=== PATIENT | female | born 1970 | race Caucasian/White ===

== ENCOUNTER 2016-08-18 08:41 | Emergency (ER) | payer OTHER ==
[2016-08-18 08:41] VITALS: BMI 45.8
--- NOTE | 2016-08-18 09:26 | ED PDOC ---
Arrival/HPI - General Chief Complaint: Back Pain Time Seen by Provider: 08/18/16 09:13 Historian: Patient - History of Present Illness Narrative History of Present Illness (Text): 08/18/16 09:16 46 year old female presents to emergency department complaining of back pain that she has had since july, and continued to worsen for the past 3 days. History translated from Indonesian. She reports that she had an incident in March where she fell. Patient states that the pain radiates to her leg and thigh when she walks and sits. Patient also complains of intermittent urinary incontinence since the fall, due to the severity of the pain, but denies dysuria. No other complaints at this time. Time/Duration: > month (since july) Symptom Onset: Gradual Symptom Course: Unchanged Modifying Factors (Text): Worse when walking, sitting in certain positions Past Medical History - Provider Review Nursing Documentation Reviewed: Yes - Infectious Disease Hx of Infectious Diseases: None - Tetanus Immunization Tetanus Immunization: Unknown - Reproductive Menopause: No - Past Medical History Past Medical History: No Previous - Cardiac Hx Cardiac Disorders: No - Pulmonary Hx Respiratory Disorders: Yes Hx Pneumonia: Yes (15 years ago) - Neurological Hx Neurological Disorder: No - HEENT Hx HEENT Disorder: No - Renal Hx Renal Disorder: No - Endocrine/Metabolic Hx Endocrine Disorders: No - Hematological/Oncological Hx Blood Disorders: No - Integumentary Hx Dermatological Disorder: Yes Other/Comment: Pain to L breast in 02/2016, no rash at that time. - Musculoskeletal/Rheumatological Hx Falls: No - Gastrointestinal Hx Gastrointestinal Disorders: No - Genitourinary/Gynecological Hx Genitourinary Disorders: No - Psychiatric Hx Psychophysiologic Disorder: No Hx Anxiety: No Hx Bipolar Disorder: No Hx Depression: No Hx Emotional Abuse: No Hx Hallucinations: No Hx Panic Disorder: No Hx Post Traumatic Stress Disorder: No Hx Psychosis: No Hx Physical Abuse: No Hx Schizophrenia: No Hx Sexual Abuse: No Hx Substance Use: No - Past Surgical History Past Surgical History: No Previous - Surgical History Hx Section: Yes Hx Tubal Ligation: Yes - Anesthesia Hx Anesthesia: Yes Hx Anesthesia Reactions: No Hx Malignant Hyperthermia: No - Suicidal Assessment Feels Threatened In Home Enviroment: No Family/Social History - Physician Review Nursing Documentation Reviewed: Yes Family/Social History: Unknown Family HX Smoking Status: Never Smoked Hx Alcohol Use: No Hx Substance Use: No Hx Substance Use Treatment: No Allergies/Home Meds Allergies/Adverse Reactions: Allergies No Known Allergies Allergy (Verified 08/18/16 08:53) Home Medications: Home Meds Medication Instructions Recorded Confirmed No Known Home Med 08/18/16 08/18/16 Review of Systems - Review of Systems Eyes: absent: Vision Changes, Eye Pain ENT: absent: Hearing Changes Respiratory: absent: SOB Cardiovascular: absent: Chest Pain Gastrointestinal: absent: Nausea, Vomiting Genitourinary Female: Other (Urinary incontinence). absent: Dysuria Musculoskeletal: Back Pain Skin: absent: Rash Neurological: absent: Headache Hemo/Lymphatic: absent: Easy Bleeding Psychiatric: absent: Depression Physical Exam Vital Signs Reviewed: Yes Vital Signs Temp Pulse Resp BP Pulse Ox 08/18/16 14:23 72 18 104/71 98 08/18/16 14:14 66 18 128/61 98 08/18/16 12:27 69 18 131/64 98 08/18/16 11:08 98.1 F 76 18 133/61 98 08/18/16 08:46 98 F 82 16 135/67 96 Temperature: Afebrile Blood Pressure: Normal Pulse: Regular Respiratory Rate: Normal Appearance: Positive for: Well-Appearing, Non-Toxic, Uncomfortable Pain Distress: Mild Mental Status: Positive for: Alert and Oriented X 3 - Systems Exam Head: Present: Atraumatic, Normocephalic Pupils: Present: PERRL Conjunctiva: Present: Normal Mouth: Present: Moist Mucous Membranes Neck: Present: Normal Range of Motion Respiratory/Chest: Present: Clear to Auscultation, Good Air Exchange. No: Respiratory Distress, Accessory Muscle Use Cardiovascular: Present: Regular Rate and Rhythm, Normal S1, S2. No: Murmurs Abdomen: Present: Normal Bowel Sounds. No: Tenderness, Distention, Peritoneal Signs Back: Present: Other (pinpoint tenderness from right buttocks to right lateral thigh. Midline bony tenderness) Upper Extremity: Present: Normal Inspection. No: Cyanosis, Edema Lower Extremity: Present: Normal Inspection. No: Edema Neurological: Present: GCS=15, CN II-XII Intact, Speech Normal, Gait Normal, Other (no saddle anestheshia) Skin: Present: Warm, Dry, Normal Color. No: Rashes Psychiatric: Present: Alert, Oriented x 3, Normal Insight, Normal Concentration Medical Decision Making ED Course and Treatment: Impression: 46 year old female presents to emergency department with back pain that radiates to her thigh since July after she sustained an injury in March. Presentation is more consistent with sciatica but due to urinary incontinence ( which sounds more like incontinence due to severe pain) and mildline pain, will get MRI to r/o spinal cord compression. Plan: -- Lumbar MRI -- Flexeril ,Toradol -- Reassess and disposition Prior Visits: Notes and results from previous visits were reviewed. On 07/10/2016 patient came in complaining of lower back pain and chest pain. Patient was discharged home with prescription of lotrimin and zovirax. Progress Notes: Lumbar MRI read by Dr. Tolbert IMPRESSION: [id number] degenerative disc changes. No evidence of significant spinal or neural foraminal narrowing. Multilevel mild facet joints hypertrophy likely due to arthritic changes. Possible gallstone versus sludge ball without evidence of acute cholecystitis. Patient and son made aware of MRI results through manager shipping. She will follow- up with PMD next week and return with any worsening symptoms - RAD Interpretation Radiology Orders: 08/18/16 09:14 SPINAL CANAL LUMBAR W/O CONT [MRI] Stat Lurer: Radiologist - Medication Orders Current Medication Orders: Discontinued Medications Cyclobenzaprine HCl (Flexeril) 10 mg PO STAT STA Stop: 08/18/16 09:15 Last Admin: 08/18/16 09:27 Dose: 10 MG Ketorolac Tromethamine (Toradol) 60 mg IM STAT STA Stop: 08/18/16 09:15 Last Admin: 08/18/16 09:26 Dose: 60 MG IM Administration Charges Document 08/18/16 09:26 SF (Rec: 08/18/16 09:27 SF [facility] [id number]) Injection Site MAR Injection Site Left Deltoid Charges for Administration # of IM Administrations 1 - Scribe Statement The provider has reviewed the documentation as recorded by the Scribe Theresa Mckeon, training with Giovanni Lujan All medical record entries made by the Scribe were at my direction and personally dictated by me. I have reviewed the chart and agree that the record accurately reflects my personal performance of the history, physical exam, medical decision making, and the department course for this patient. I have also personally directed, reviewed, and agree with the discharge instructions and disposition. Disposition/Present on Arrival - Present on Arrival Any Indicators Present on Arrival: No History of DVT/PE: No History of Uncontrolled Diabetes: No Urinary Catheter: No History of Decub. Ulcer: No History Surgical Site Infection Following: None - Disposition Have Diagnosis and Disposition been Completed?: Yes Diagnosis: Back pain Disposition: HOME/ ROUTINE Disposition Time: 13:47 Patient Plan: Discharge Condition: GOOD Discharge Instructions (ExitCare): Sciatica (ED) Print Language: CHADIAN Additional Instructions: Take anti-inflammatories such as motrin for pain. Follow-up with PMD within 2 days for ortho and PT referral. Return to ED if condition worsens. Referrals: PCP,NO [Primary Care Provider] - Follow up with primary
[2016-08-18 11:09] VITALS: RESP 18; TEMP 98.1; O2SAT 98
--- NOTE | 2016-08-18 13:24 | MRI ---
PROCEDURE: MR LUMBAR SPINE WITHOUT CONTRAST HISTORY: incontinence, lumbar back pain extending to the right leg. COMPARISON: Comparison is made to the previous CT of the abdomen and pelvis dated 03/10/2016 TECHNIQUE: Multiecho multiplanar sequences were performed through the lumbar spine without the use of intravenous contrast. FINDINGS: Normal lumbar lordosis. Vertebral body heights are preserved. Marrow signal unremarkable. Conus medullaris unremarkable at the level of T12-L1 No evidence of acute pathology in the visualized paraspinal soft tissue. This suspicious for gallstone or sludge ball. T12-L1: Moderate degenerative disc changes. Small disc bulging without evidence of significant spinal or neural foraminal narrowing. L1-2: Mild degenerative disc changes. Small broad-based disc bulging without evidence of significant spinal or neural foraminal narrowing. L2-3: No disc herniation, spinal canal stenosis or neural foraminal narrowing. L3-4: No disc herniation, spinal canal stenosis or neural foraminal narrowing. L4-5: Mild degenerative disc changes. Mild facet joint hypertrophy. No disc herniation, spinal canal stenosis or neural foraminal narrowing. L5-S1: No disc herniation, spinal canal stenosis or neural foraminal narrowing. Mild facet joint hypertrophy. OTHER FINDINGS: None. IMPRESSION: Hckg-[id number] degenerative disc changes. No evidence of significant spinal or neural foraminal narrowing. Multilevel mild facet joints hypertrophy likely due to arthritic changes. Possible gallstone versus sludge ball without evidence of acute cholecystitis.
[2016-08-18 14:23] VITALS: BP 104/71; PULSE 72
== END 2016-08-18 14:23 | disposition home or self-care (01) ==
LOC: ED 08:41
DX: M54.9 Dorsalgia, unspecified (principal)
CPT/HCPCS: 72148; 96372; 99284; J1885

== ENCOUNTER 2016-12-23 23:53 | Emergency (ER) | payer SELFPAY ==
[2016-12-24 00:12] VITALS: BMI 43.4
[2016-12-24] MEDS ORDERED: Sodium Chloride 0.9% 1,000 ML IV STA (00:13)
--- NOTE | 2016-12-24 00:13 | ED PDOC ---
Arrival/HPI - General Time Seen by Provider: 12/24/16 00:10 Historian: Patient - History of Present Illness Narrative History of Present Illness (Text): 12/24/16 00:11 46 y/o female, pmh including hyperlipidemia/herpes zoster, nkda, c/o lower abdominal pain with diarrhea started yesterday. Pt. has lower abdominal pain, started yesterday, cramping sensation, associated with multiple episodes of watery stool, no recent traveling or use of any antibiotics for the past 6 weeks , no chest pain or shortness of breath, no palpitation, no night sweat, no dizziness, no other medical or psychological complaints. Past Medical History - Provider Review Nursing Documentation Reviewed: Yes - Infectious Disease Hx of Infectious Diseases: None - Tetanus Immunization Tetanus Immunization: Unknown - Past Medical History Past Medical History: No Previous - Cardiac Hx Cardiac Disorders: No - Pulmonary Hx Respiratory Disorders: Yes Hx Pneumonia: Yes (15 years ago) - Neurological Hx Neurological Disorder: No - HEENT Hx HEENT Disorder: No - Renal Hx Renal Disorder: No - Endocrine/Metabolic Hx Endocrine Disorders: No - Hematological/Oncological Hx Blood Disorders: No - Integumentary Hx Dermatological Disorder: Yes Other/Comment: Pain to L breast in 02/2016, no rash at that time. - Musculoskeletal/Rheumatological Hx Falls: No - Gastrointestinal Hx Gastrointestinal Disorders: No - Genitourinary/Gynecological Hx Genitourinary Disorders: No - Psychiatric Hx Psychophysiologic Disorder: No Hx Anxiety: No Hx Bipolar Disorder: No Hx Depression: No Hx Emotional Abuse: No Hx Hallucinations: No Hx Panic Disorder: No Hx Post Traumatic Stress Disorder: No Hx Psychosis: No Hx Physical Abuse: No Hx Schizophrenia: No Hx Sexual Abuse: No Hx Substance Use: No - Past Surgical History Past Surgical History: No Previous - Surgical History Hx Section: Yes Hx Tubal Ligation: Yes - Anesthesia Hx Anesthesia: Yes Hx Anesthesia Reactions: No Hx Malignant Hyperthermia: No - Suicidal Assessment Feels Threatened In Home Enviroment: No Family/Social History - Physician Review Nursing Documentation Reviewed: Yes Family/Social History: Unknown Family HX Smoking Status: Never Smoked Hx Alcohol Use: No Hx Substance Use: No Hx Substance Use Treatment: No Allergies/Home Meds Allergies/Adverse Reactions: Allergies No Known Allergies Allergy (Verified 08/18/16 08:53) Home Medications: Home Meds Medication Instructions Recorded Confirmed No Known Home Med 08/18/16 08/18/16 Review of Systems - Review of Systems Constitutional: absent: Fatigue, Fevers Eyes: absent: Vision Changes ENT: absent: Hearing Changes Respiratory: absent: SOB, Cough Cardiovascular: absent: Chest Pain Gastrointestinal: Abdominal Pain, Diarrhea. absent: Nausea, Vomiting Musculoskeletal: absent: Arthralgias, Back Pain, Myalgias Skin: absent: Rash, Pruritis Physical Exam Vital Signs Reviewed: Yes Vital Signs Temp Pulse Resp BP Pulse Ox 12/24/16 02:35 88 16 142/78 100 12/23/16 23:53 98.2 F 84 18 138/74 99 Temperature: Afebrile Blood Pressure: Normal Pulse: Regular Respiratory Rate: Normal Appearance: Positive for: Well-Appearing, Non-Toxic, Uncomfortable Pain Distress: Moderate Mental Status: Positive for: Alert and Oriented X 3 - Systems Exam Head: Present: Atraumatic, Normocephalic Pupils: Present: PERRL Extroacular Muscles: Present: EOMI Conjunctiva: Present: Normal Mouth: Present: Moist Mucous Membranes Neck: Present: Normal Range of Motion Respiratory/Chest: Present: Clear to Auscultation, Good Air Exchange. No: Respiratory Distress, Accessory Muscle Use Cardiovascular: Present: Regular Rate and Rhythm, Normal S1, S2. No: Murmurs Abdomen: Present: Tenderness (mid abdominal tenderness), Normal Bowel Sounds. No: Distention, Peritoneal Signs, Rebound, Guarding Back: Present: Normal Inspection Upper Extremity: Present: Normal Inspection. No: Cyanosis, Edema Lower Extremity: Present: Normal Inspection. No: Edema Neurological: Present: GCS=15, Speech Normal, Motor Func Grossly Intact, Gait Normal, Memory Normal Skin: Present: Warm, Dry, Normal Color. No: Rashes Psychiatric: Present: Alert, Oriented x 3, Normal Insight, Normal Concentration Medical Decision Making ED Course and Treatment: 12/24/16 00:12 -labs/ua -CT abdomen and pelvis with IV contrast -IVF/pepcid/reglan -observe and reassess 12/24/16 01:06 -labs are non-significant -UA show no UTI 12/24/16 01:50 -Pain resolved with IV medications, feels much better, pending for the CT. -Case discussed and sign out to the ER attending Dr. Marquez for the follow up. - Lab Interpretations Lab Results: 12/24/16 00:30 12/24/16 00:30 Lab Results 12/24/16 00:30: Sodium 139, Potassium 3.7, Chloride 104, Carbon Dioxide 26, Anion Gap 13, BUN 16, Creatinine 0.7, Est GFR ( Amer) > 60, Est GFR (Non- Af Amer) > 60, Random Glucose 99, Calcium 8.5, Total Bilirubin 0.6, AST 39, ALT 50, Alkaline Phosphatase 141 H, Total Protein 7.6, Albumin 3.9, Globulin 3.7, Albumin/Globulin Ratio 1.1, Lipase 46 12/24/16 00:30: Urine Color Yellow, Urine Appearance Clear, Urine pH 6.0, Ur Specific [place] 1.025, Urine Protein Trace H, Urine Glucose (UA) Negative, Urine Ketones Negative, Urine Blood Negative, Urine Nitrate Negative, Urine Bilirubin Negative, Urine Urobilinogen 0.2, Ur Leukocyte Esterase Negative, Urine RBC Negative, Urine WBC 0 - 2, Ur Epithelial Cells 0 - 2 12/24/16 00:30: WBC 7.3, RBC 4.46, Hgb 12.6, Hct 37.7, MCV 84.5, MCH 28.3, MCHC 33.4, RDW 14.5, Plt Count 162, MPV 10.8, Gran % 75.6 H, Lymph % (Auto) 16.2 L, [place] % (Auto) 7.5 H, Eos % (Auto) 0.4 L, Baso % (Auto) 0.3, Gran # 5.52, Lymph # 1.2, [place] # 0.6, Eos # 0.0, Baso # 0.02 I have reviewed the lab results: Yes Interpretation: No clinic. lab abnormalty - RAD Interpretation Radiology Orders: 12/24/16 00:13 ABD & PELVIS IV CONTRAST ONLY [CT] Stat - Medication Orders Current Medication Orders: Discontinued Medications Famotidine (Pepcid) 20 mg IVP STAT STA Stop: 12/24/16 00:14 Last Admin: 12/24/16 00:40 Dose: 20 mg Sodium Chloride (Sodium Chloride 0.9%) 1,000 mls @ 999 mls/hr IV .Q1H1M STA Stop: 12/24/16 01:13 Last Admin: 12/24/16 00:38 Dose: 999 mls/hr Iohexol (Omnipaque 350 100 Ml) Confirm Administered Dose 350 mg .ROUTE .STK-MED ONE Stop: 12/24/16 01:11 Metoclopramide HCl (Reglan) 10 mg IVP STAT STA Stop: 12/24/16 00:14 Last Admin: 12/24/16 00:40 Dose: 10 mg Disposition/Present on Arrival - Present on Arrival Any Indicators Present on Arrival: No History of DVT/PE: No History of Uncontrolled Diabetes: No Urinary Catheter: No History of Decub. Ulcer: No History Surgical Site Infection Following: None - Disposition Have Diagnosis and Disposition been Completed?: Yes Diagnosis: Abdominal pain Disposition: HOME/ ROUTINE Disposition Time: 14:08 Condition: GOOD Discharge Instructions (ExitCare): Abdominal Pain (ED) Print Language: ITALIAN Forms: [employer] (French)
[2016-12-24 00:43] LABS: BASO # 0.02 K/mm3 (0.0-2.0); BASO % 0.3 % (0.0-3.0); EOS % 0.4 % (1.5-5.0); GRAN # 5.52 (1.4-6.5); GRAN % 75.6 % (50.0-68.0); HEMOGLOBIN 12.6 gm/dL (12.0-16.0); LYMPH # 1.2 (1.2-3.4); LYMPH % 16.2 % (22.0-35.0); MEAN CELL VOLUME 84.5 fL (80.0-105.0); MEAN CORPUSCULAR HEMOGLOBIN 28.3 pg (25.0-35.0); MEAN CORPUSCULAR HGB CONC 33.4 g/dl (31.0-37.0); MEAN PLATELET VOLUME 10.8 fl (7.0-11.0); MONO # 0.6 (0.1-0.6); MONO % 7.5 % (1.0-6.0); PLATELET COUNT 162 10^3/uL (120.0-450.0); RBC 4.46 10^6/uL (3.5-6.1); RED CELL DISTRIBUTION WIDTH 14.5 % (11.5-14.5); WHITE BLOOD COUNT 7.3 10^3/ul (4.5-11.0)
[2016-12-24 00:44] LABS: URINE BILIRUBIN NEGATIVE (NEGATIVE); URINE BLOOD NEGATIVE (NEGATIVE); URINE GLUCOSE (UA) NEGATIVE (NEGATIVE); URINE LEUKOCYTE ESTERASE NEGATIVE Leu/uL (NEGATIVE); URINE NITRATE NEGATIVE (NEGATIVE); URINE PROTEIN TRACE mg/dL (<30 mg/dL); URINE UROBILINOGEN 0.2 E.U./dL (<1 E.U./dL)
[2016-12-24 00:47] LABS: URINE APPEARANCE CLEAR (CLEAR); URINE COLOR YELLOW (YELLOW)
[2016-12-24 00:59] LABS: ALB/GLOB RATIO 1.1 (1.1-1.8); ALBUMIN 3.9 g/dL (3.0-4.8); ALT/SGPT 50 U/L (7-56); AST/SGOT 39 U/L (15-39); BLOOD UREA NITROGEN 16 mg/dL (7-21); CALCIUM 8.5 mg/dL (8.4-10.5); GFR AFRICAN-AMERICAN > 60; GFR NON-AFRICAN AMERICAN > 60; LIPASE 46 U/L (23-300)
[2016-12-24 01:05] LABS: URINE EPITHELIAL CELLS 0 - 2 /hpf (0-5); URINE RBC NEGATIVE /hpf (0-2); URINE WBC 0 - 2 /hpf (0-6)
[2016-12-24] MEDS ORDERED: Iohexol 350 MG/100 ML VIAL ONE (01:10)
--- NOTE | 2016-12-24 02:19 | CT ---
EXAM: CT Abdomen and Pelvis With Intravenous Contrast CLINICAL HISTORY: 46 years old, female; Pain; Abdominal pain; Additional info: Abdominal pain and diarrhea x 2 days. TECHNIQUE: Axial computed tomography images of the abdomen and pelvis with intravenous contrast. This CT exam was performed using one or more of the following dose reduction techniques: automated exposure control, adjustment of the mA and/or kV according to patient size, and/or use of iterative reconstruction technique. Coronal and sagittal reformatted images were created and reviewed. CONTRAST: 100 mL of OMNIPAQUE administered intravenously. COMPARISON: US - ABDOMEN COMPLETE 03/10/2016 9:41:03 AM FINDINGS: Lower thorax: Trace bilateral pleural effusions, with adjacent compressive atelectasis. ABDOMEN: Liver: The liver is enlarged. Gallbladder and bile ducts: The gallbladder is decompressed, without calcified stones. No significant intra- or extrahepatic biliary ductal dilation. Pancreas: Enhances homogeneously. No ductal dilation. No discrete mass. Spleen: No acute findings. Adrenals: No acute findings. Kidneys and ureters: No acute findings. No hydronephrosis or renal calculi. No discrete solid mass. PELVIS: Bladder: No acute findings. Reproductive: No acute findings. Appendix: The air filled appendix is of normal caliber (series 2, image 145; series 601, image 66) . ABDOMEN and PELVIS: Stomach and bowel: No obstruction. No mucosal thickening. Peritoneum: No significant fluid collection. No free air. Lymph nodes: No pathologically enlarged lymph nodes. Vasculature: Unremarkable. Bones: No acute fracture. IMPRESSION: Normal appendix. Hepatic enlargement. Otherwise, unremarkable CT examination of the abdomen and pelvis as detailed above.
[2016-12-24 03:40] VITALS: TEMP 98.2
[2016-12-24 03:41] VITALS: BP 142/78; PULSE 88; RESP 16; O2SAT 100
== END 2016-12-24 02:35 | disposition home or self-care (01) ==
LOC: ED 23:53
DX: R10.9 Unspecified abdominal pain (principal)
CPT/HCPCS: 74177; 80053; 81001; 83690; 85025; 96361; 96374; 96375; 99281; J2765; J7040; Q9967

== ENCOUNTER 2017-03-03 12:25 | Emergency (ER) | payer OTHER ==
[2017-03-03 12:25] VITALS: BMI 43.4
[2017-03-03 12:43] VITALS: RESP 16; TEMP 97.9
[2017-03-03] MEDS ORDERED: TDAP Vaccine 0.5 mL Syr IM ONE (13:06)
--- NOTE | 2017-03-03 13:08 | ED PDOC ---
Arrival/HPI - General Chief Complaint: Lower Extremity Problem/Injury Time Seen by Provider: 03/03/17 13:04 Historian: Patient - History of Present Illness Narrative History of Present Illness (Text): 03/03/17 13:07 A 47 year old female presents to the emergency department complaining of right lower extremity pain after mechanical fall earlier today. 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 Patient reports she tripped and fell injuring her right hand, knee, foot and ankle. Patient denies any other injuries, loss of consciousness, head trauma, headache, vision changes , neck pain, nausea, vomiting, abdominal pain, back pain, chest pain, shortness of breath or any other complaints. Time/Duration: Other (earlier today) Symptom Course: Unchanged Quality: Other Context: Tripped Past Medical History - Provider Review Nursing Documentation Reviewed: Yes - Infectious Disease Hx of Infectious Diseases: None - Tetanus Immunization Tetanus Immunization: Unknown - Past Medical History Past Medical History: No Previous - Cardiac Hx Cardiac Disorders: No - Pulmonary Hx Pneumonia: Yes - Neurological Hx Neurological Disorder: No - HEENT Hx HEENT Disorder: No - Renal Hx Renal Disorder: No - Endocrine/Metabolic Hx Endocrine Disorders: No - Hematological/Oncological Hx Blood Disorders: No - Integumentary Hx Dermatological Disorder: No - Musculoskeletal/Rheumatological Hx Falls: No - Gastrointestinal Hx Gastrointestinal Disorders: No - Genitourinary/Gynecological Hx Genitourinary Disorders: No - Psychiatric Hx Anxiety: No Hx Bipolar Disorder: No Hx Depression: No Hx Post Traumatic Stress Disorder: No Hx Schizophrenia: No Hx Substance Use: No - Past Surgical History Past Surgical History: No Previous - Surgical History Hx Tubal Ligation: Yes - Anesthesia Hx Anesthesia: Yes - Suicidal Assessment Feels Threatened In Home Enviroment: No Family/Social History - Physician Review Nursing Documentation Reviewed: Yes Family/Social History: No Known Family HX Smoking Status: Never Smoked Hx Alcohol Use: No Hx Substance Use: No Hx Substance Use Treatment: No Allergies/Home Meds Allergies/Adverse Reactions: Allergies No Known Allergies Allergy (Verified 03/03/17 12:37) Home Medications: Home Meds Medication Instructions Recorded Confirmed No Known Home Med 03/03/17 03/03/17 Physical Exam - Physical Exam Narrative Physical Exam (Text): - Review of Systems Constitutional: Normal. absent: Fatigue, Weight Change, Fevers Eyes: Normal ENT: denies sore throat, denies tristhmus Respiratory: Normal. absent: SOB, Cough, Sputum Cardiovascular: absent: Chest Pain, Palpitations, Syncope Gastrointestinal: Normal. absent: Abdominal Pain, Diarrhea, Nausea, Vomiting Genitourinary: Normal. absent: Dysuria, Frequency, Hematuria Musculoskeletal: (+) Right hand, knee, foot and ankle pain absent: Arthralgias , Back Pain, Neck Pain Skin: no rashes, no erythema Neurological: absent: Focal Weakness Endocrine: Normal Hemo/Lymphatic: Normal Psychiatric: No suicidal or homicidal ideations Physical exam Patient appears age appropriate in no distress, speaking full sentences without difficulty Head atraumatic. No nasal bone deformity or tenderness, no facial or jaw pain/ swelling. No neck midline tenderness, thoracic and lumbar spine with no midline tenderness. Pt moving b/l upper and lower extremities without difficulty, 5/5 strength, with full active and passive ROM. Distal neurovasc fully intact. Abd soft/nt/nd, no hematomas, no peritoneal signs. Neg. pelvic rock. - Systems Exam Head: Present: Atraumatic, Normocephalic Pupils: Present: PERRL Extroacular Muscles: Present: EOMI Conjunctiva: Present: Normal Mouth: Present: Moist Mucous Membranes Neck: Present: Normal Range of Motion. No: MIDLINE TENDERNESS, Paraspinal Tenderness Respiratory/Chest: Present: Clear to Auscultation, Good Air Exchange. No: Respiratory Distress, Accessory Muscle Use, Tachypneic Cardiovascular: Present: Regular Rate and Rhythm, Normal S1, S2, Peripheal Pulses Present. No: Murmurs Abdomen: Present: Normal Bowel Sounds. No: Tenderness, Distention, Peritoneal Signs, Rebound, Guarding Back: Present: Normal Inspection. No: Midline Tenderness, Paraspinal Tenderness Upper Extremity: Present: Normal Inspection. No: Cyanosis, Edema Lower Extremity: Present: Superficial right knee abrasion with full active and passive ROM and 5/5 strength, Right foot full active and passive ROM and 5/5 strength, Right ankle full active and passive ROM and 5/5 strength No: Swelling , Edema Neurological: Present: GCS=15, Speech Normal, cranial nerves II through XII fully intact with no cerebellar abnormality, neurosensory fully intact. No focal neurological deficits. Skin: Present: Warm, Dry, Normal Color. No: Rashes Lymphatic: Present: OX3, NI, NC Psychiatric: Present: Alert, Oriented x 3, Normal Insight, Normal Concentration Vital Signs Reviewed: Yes Vital Signs Temp Pulse Resp BP Pulse Ox 03/03/17 12:38 97.9 F 66 16 109/75 98 Temperature: Afebrile Blood Pressure: Normal Pulse: Regular Respiratory Rate: Normal Appearance: Positive for: Well-Appearing, Non-Toxic, Comfortable Pain Distress: None Mental Status: Positive for: Alert and Oriented X 3 Medical Decision Making ED Course and Treatment: 03/03/17 13:07 Impression: A 47 year old female with right hand, knee, foot and ankle pain after mechanical fall. On exam, superficial abrasion to right knee otherwise unremarkable. Differential Diagnosis included but are not limited to: Sprain vs. Strain vs. Fracture Plan: -- Right hand xray -- Right knee xray -- Right foot xray -- Right ankle xray -- Toradol and Boostrix vaccine -- Reassess and disposition Progress Notes: Report Date : 03/03/2017 14:35:56 PROCEDURE: Right Hand Radiographs. Dictator : Wing Narayan MD IMPRESSION: Normal right hand radiographs. Report Date : 03/03/2017 14:36:17 PROCEDURE: Right Knee Radiographs. Dictator : Wing Narayan MD IMPRESSION: Normal radiographs of the right knee. Report Date : 03/03/2017 14:37:02 PROCEDURE: Right Foot Radiographs. Dictator : Wing Narayan MD IMPRESSION: No acute fracture. Report Date : 03/03/2017 14:37:25 PROCEDURE: Right Ankle Radiographs. Dictator : Wing Narayan MD IMPRESSION: Normal right ankle radiographs. 03/03/17 15:00 Patient ambulating in the emergency department without difficulty or assistance had an extensive d/w pt that although xrays are negative for any acute bony abnormality, it is still very important to fu with pmd and ortho specialist for further w/u and testing such as MRI to r/o any ligamentous/tendenous/meniscal injury. Pt verbalized full understanding of above discussion. Pt states she understands to return to the ER right away for new or worsening symptoms or for inability to f/u with PMD or specialist as instructed. Patient states that she fully agrees with and understands discharge instructions. States that she agrees with the plan and disposition. Verbalized and repeated discharge instructions and plan. I have given the patient opportunity to ask any additional questions. - Lab Interpretations I have reviewed the lab results: Yes - RAD Interpretation Radiology Orders: 03/03/17 13:05 ANKLE RIGHT 3 VIEWS ROUTINE [RAD] Stat FOOT RIGHT 3 VIEWS ROUTINE [RAD] Stat KNEE W PATELLA RIGHT 3 VIEW [RAD] Stat 03/03/17 13:20 HAND RIGHT 3 VIEWS [RAD] Stat - Medication Orders Current Medication Orders: Discontinued Medications Ketorolac Tromethamine (Toradol) 30 mg IM STAT STA Stop: 03/03/17 13:05 Last Admin: 03/03/17 13:15 Dose: 30 mg MAR Pain Assessment Document 03/03/17 13:15 GMD (Rec: 03/03/17 13:15 [place] [facility] [id number][place] Pain Reassessment Is this a pain reassessment? No Sleep Is patient sleeping during reassessment? No Presence of Pain Presence of Pain Yes Location Left, Right or Bilateral Right Pain Location Body Site Knee 2nd Toe 3rd Toe 4th Toe Description Intensity of Pain at present 8 IM Administration Charges Document 03/03/17 13:15 GMD (Rec: 03/03/17 13:15 [facility] [id number]) Injection Site MAR Injection Site Left Deltoid Charges for Administration # of IM Administrations 1 Tetanus/Reduced Diphtheria/Acell Pertussis (Boostrix Vaccine Inj) 0.5 ml IM .ONCE ONE Stop: 03/03/17 13:07 Last Admin: 03/03/17 13:15 Dose: 0.5 ml MAR Immunization Data Document 03/03/17 13:15 GMD (Rec: 03/03/17 13:15 GMD [facility] [id number]) Immunization Data Vaccine Lot Number [id number] Site Given Right Deltoid - Scribe Statement The provider has reviewed the documentation as recorded by the Scribe Celina Gerardo Provider Scribe Attestation: All medical record entries made by the Scribe were at my direction and personally dictated by me. I have reviewed the chart and agree that the record accurately reflects my personal performance of the history, physical exam, medical decision making, and the department course for this patient. I have also personally directed, reviewed, and agree with the discharge instructions and disposition. Disposition/Present on Arrival - Present on Arrival Any Indicators Present on Arrival: No History of DVT/PE: No History of Uncontrolled Diabetes: No Urinary Catheter: No History of Decub. Ulcer: No History Surgical Site Infection Following: None - Disposition Have Diagnosis and Disposition been Completed?: Yes Diagnosis: Fall Disposition: HOME/ ROUTINE Disposition Time: 15:01 Patient Plan: Discharge Condition: GOOD Discharge Instructions (ExitCare): Sprain (ED), Knee Sprain (ED) Additional Instructions: Please take [id number] Motrin or Tylenol for pain PLEASE RETURN TO THE EMERGENCY DEPARTMENT FOR NEW OR WORSENING SYMPTOMS. RETURN RIGHT AWAY IF YOU CANNOT FOLLOW UP WITH YOUR PRIMARY CARE DOCTOR, CLINIC, OR SPECIALIST IN 1-2 DAYS. Referrals: PCP,NO [Primary Care Provider] - Follow up with primary Ariana Edmond MD [Staff Provider] - Follow up with primary Mic Burton DO [Staff Provider] - Follow up with primary Forms: [facility] (Turkish), WORK NOTE
--- NOTE | 2017-03-03 14:37 | RAD ---
PROCEDURE: Right Hand Radiographs. HISTORY: fall COMPARISON: None. FINDINGS: BONES: Normal. No fracture. JOINTS: Normal. No osteoarthritic changes. SOFT TISSUES: Normal. OTHER FINDINGS: None. IMPRESSION: Normal right hand radiographs.
--- NOTE | 2017-03-03 14:38 | RAD ---
PROCEDURE: Right Knee Radiographs. HISTORY: fall COMPARISON: None. FINDINGS: BONES: Normal. No fracture. JOINTS: Normal. No osteoarthritis. JOINT EFFUSION: None. OTHER FINDINGS: None. IMPRESSION: Normal radiographs of the right knee.
--- NOTE | 2017-03-03 14:38 | RAD ---
PROCEDURE: Right Foot Radiographs. HISTORY: fall COMPARISON: None. FINDINGS: BONES: No evidence of fracture. Plantar calcaneal spur noted. JOINTS: Normal. SOFT TISSUES: Normal. OTHER FINDINGS: None. IMPRESSION: No acute fracture.
--- NOTE | 2017-03-03 14:39 | RAD ---
PROCEDURE: Right Ankle Radiographs. HISTORY: fall COMPARISON: None FINDINGS: BONES: Normal. No fracture. JOINTS: Normal. No osteoarthritis. Ankle mortise maintained. Talar dome intact SOFT TISSUES: Normal. OTHER FINDINGS: None. IMPRESSION: Normal right ankle radiographs.
[2017-03-03 15:15] VITALS: BP 108/72; PULSE 74; O2SAT 99
== END 2017-03-03 15:15 | disposition home or self-care (01) ==
LOC: ED 12:25
DX: S83.91XA Sprain of unspecified site of right knee, initial encounter (principal); W01.0XXA Fall on same level from slipping, tripping and stumbling without subsequent striking against object, initial encounter; Y93.89 Activity, other specified; Y92.89 Other specified places as the place of occurrence of the external cause; Z23 Encounter for immunization
CPT/HCPCS: 73130; 73562; 73610; 73630; 90471; 90715; 96372; 99284; J1885

== ENCOUNTER 2017-06-26 19:37 | Emergency (ER) | payer OTHER ==
[2017-06-26 20:34] VITALS: RESP 20; TEMP 98.3; O2SAT 98
[2017-06-26] MEDS ORDERED: Albuterol 0.083% Inhal Sol (2.5 mg/3 mL) UD IH STA (20:41)
--- NOTE | 2017-06-26 21:18 | ED PDOC ---
Arrival/HPI - General Chief Complaint: Cough, Cold, Congestion Time Seen by Provider: 06/26/17 20:33 Historian: Patient - History of Present Illness Narrative History of Present Illness (Text): 06/26/17 20:33 Kelly Verdin is a 47 year old female who presents to the emergency department complaining of a productive cough with phlegm for 4 days. Patient notes that she experiences associated post-tussive chest pain, back pain, sore throat, and nasal congestion. Patient denies any fever, chills, nausea, vomiting , diarrhea, urinary symptoms,neck pain, headache, dizziness, or any other complaints. PMD: None Time/Duration: < week Symptom Onset: Gradual Symptom Course: Unchanged Context: Home Past Medical History - Provider Review Nursing Documentation Reviewed: Yes - Infectious Disease Hx of Infectious Diseases: None - Tetanus Immunization Tetanus Immunization: Unknown - Reproductive Menopause: Yes - Past Medical History Past Medical History: No Previous - Cardiac Hx Cardiac Disorders: No - Pulmonary Hx Pneumonia: Yes - Neurological Hx Neurological Disorder: No - HEENT Hx HEENT Disorder: No - Renal Hx Renal Disorder: No - Endocrine/Metabolic Hx Endocrine Disorders: No - Hematological/Oncological Hx Blood Disorders: No - Integumentary Hx Dermatological Disorder: No - Musculoskeletal/Rheumatological Hx Falls: No - Gastrointestinal Hx Gastrointestinal Disorders: No - Genitourinary/Gynecological Hx Genitourinary Disorders: No - Psychiatric Hx Anxiety: No Hx Bipolar Disorder: No Hx Depression: No Hx Post Traumatic Stress Disorder: No Hx Schizophrenia: No Hx Substance Use: No - Past Surgical History Past Surgical History: No Previous - Surgical History Hx Tubal Ligation: Yes - Anesthesia Hx Anesthesia: Yes - Suicidal Assessment Feels Threatened In Home Enviroment: No Family/Social History - Physician Review Nursing Documentation Reviewed: Yes Family/Social History: No Known Family HX Smoking Status: Never Smoked Hx Alcohol Use: No Hx Substance Use: No Hx Substance Use Treatment: No Allergies/Home Meds Allergies/Adverse Reactions: Allergies No Known Allergies Allergy (Verified 03/03/17 12:37) Review of Systems - Physician Review All systems were reviewed & negative as marked: Yes - Review of Systems Constitutional: absent: Fevers, Night Sweats Eyes: absent: Vision Changes ENT: Sore Throat, Sinus Congestion. absent: Hearing Changes Respiratory: Cough, Sputum Cardiovascular: Chest Pain (post-tussive) Gastrointestinal: absent: Abdominal Pain Genitourinary Female: absent: Dysuria, Frequency Musculoskeletal: Back Pain (Post-tussive). absent: Arthralgias Skin: absent: Rash, Pruritis Neurological: absent: Headache Endocrine: absent: Diaphoresis Hemo/Lymphatic: absent: Adenopathy Psychiatric: absent: Anxiety, Depression Physical Exam Vital Signs Reviewed: Yes Vital Signs Temp Pulse Resp BP Pulse Ox 06/26/17 22:02 86 20 118/75 98 06/26/17 19:38 98.3 F 80 20 105/71 98 Temperature: Afebrile Blood Pressure: Normal Pulse: Regular Respiratory Rate: Normal Appearance: Positive for: Well-Appearing, Non-Toxic, Comfortable Pain Distress: None Mental Status: Positive for: Alert and Oriented X 3 - Systems Exam Head: Present: Atraumatic, Normocephalic Pupils: Present: PERRL Extroacular Muscles: Present: EOMI Conjunctiva: Present: Normal Mouth: Present: Moist Mucous Membranes Neck: Present: Normal Range of Motion Respiratory/Chest: Present: Wheezes (Right sided upper respiratory wheezing ) Cardiovascular: Present: Regular Rate and Rhythm, Normal S1, S2. No: Murmurs Abdomen: Present: Normal Bowel Sounds. No: Tenderness, Distention, Peritoneal Signs Back: Present: Normal Inspection Upper Extremity: Present: Normal Inspection. No: Cyanosis, Edema Lower Extremity: Present: Normal Inspection. No: Edema Neurological: Present: GCS=15, CN II-XII Intact, Speech Normal Skin: Present: Warm, Dry, Normal Color. No: Rashes Psychiatric: Present: Alert, Oriented x 3, Normal Insight, Normal Concentration Medical Decision Making ED Course and Treatment: 06/26/17 21:19 Impression: 47 year old female complaining of productive cough with phlegm with associated post-tussive chest pain, back pain, sore throat, and nasal congestion for 4 days. Differential Diagnosis included but are not limited to: Bronchitis/URI r/o Pneumonia Plan: -- Chest X-ray -- Albuterol and Motrin -- Reassess and disposition Prior Visits: Notes and results from previous visits were reviewed. Patient was last seen in the emergency department on 03/03/17 for right lower extremity pain after mechanical fall. Patient was discharged home. Progress Notes: 06/26/17 21:52 On reevaluation, patient feel better. Lungs clear. Stable for discharge. She explained that she could continue her Nyquil as needed and to make sure she follows up with her primary care doctor. She advised to return to the ED if symptoms worsen or any other concern. - RAD Interpretation Radiology Orders: 06/26/17 20:41 CXR [CHEST TWO VIEWS (PA/LAT)] [RAD] Stat - Medication Orders Current Medication Orders: Discontinued Medications Albuterol Sulfate (Albuterol 0.083% Inhal Joanne (2.5 Mg/3 Ml) Ud) 2.5 mg IH STAT STA Stop: 06/26/17 20:42 Last Admin: 06/26/17 21:39 Dose: 2.5 mg Ibuprofen (Motrin Tab) 600 mg PO STAT STA Stop: 06/26/17 20:43 Last Admin: 06/26/17 21:35 Dose: 600 mg - Scribe Statement The provider has reviewed the documentation as recorded by the Emili Estrella Provider Scribe Attestation: All medical record entries made by the Scribe were at my direction and personally dictated by me. I have reviewed the chart and agree that the record accurately reflects my personal performance of the history, physical exam, medical decision making, and the department course for this patient. I have also personally directed, reviewed, and agree with the discharge instructions and disposition. Disposition/Present on Arrival - Present on Arrival Any Indicators Present on Arrival: No History of DVT/PE: No History of Uncontrolled Diabetes: No Urinary Catheter: No History of Decub. Ulcer: No History Surgical Site Infection Following: None - Disposition Have Diagnosis and Disposition been Completed?: Yes Diagnosis: Bronchitis, Upper respiratory infection Disposition: HOME/ ROUTINE Disposition Time: 21:53 Patient Plan: Discharge Condition: IMPROVED Discharge Instructions (ExitCare): Acute Bronchitis (ED) Print Language: PARAGUAYAN Additional Instructions: Ms Anderson, thank you for letting us take care of you today. Your provider was Dr. Crook. You were treated for Bronchitis, URI. The emergency medical care you received today was directed at your acute symptoms. If you were prescribed any medication, please fill it and take as directed. It may take several days for your symptoms to resolve. Return to the Emergency Department if your symptoms worsen, do not improve, or if you have any other problems. Please contact your doctor or call one of the physicians/clinics you have been referred to that are listed on the Patient Visit Information form that is included in your discharge packet. Bring any paperwork you were given at discharge with you along with any medications you are taking to your follow up visit. Our treatment cannot replace ongoing medical care by a primary care provider (PCP) outside of the emergency department. Thank you for allowing the [facility] team to be part of your care today. If you had an X-Ray or CT scan: A Radiologist will review the ED reading if any change in treatment is needed we will contact you. If you had a blood, urine, or wound culture: It will take several days for the results, if any change in treatment is needed we will contact you. If you had an STI test: It will take 48 hours for the results. Please call after 1 week if you have not heard back. Prescriptions: Albuterol HFA [Ventolin HFA 90 mcg/actuation (8 g)] 2 puff IH Q4 #1 puff Ibuprofen [Motrin] 600 mg PO Q6 PRN #30 tab PRN Reason: Pain, Moderate (4-7) Referrals: Lisa Lawson DO [Primary Care Provider] - Follow up with primary Forms: [employer] (Turkish), [employer] ([place]ican)
[2017-06-26 22:03] VITALS: BP 118/75; PULSE 86
--- NOTE | 2017-06-27 08:27 | RAD ---
HISTORY: cough r/o pna COMPARISON: 03/09/2016 TECHNIQUE: Chest PA and lateral FINDINGS: LUNGS: No active pulmonary disease. PLEURA: No significant pleural effusion identified. No pneumothorax apparent. CARDIOVASCULAR: Normal. OSSEOUS STRUCTURES: No significant abnormalities. VISUALIZED UPPER ABDOMEN: Normal. OTHER FINDINGS: None. IMPRESSION: No active disease.
== END 2017-06-26 22:03 | disposition home or self-care (01) ==
LOC: ED 19:37
DX: J20.9 Acute bronchitis, unspecified (principal); J06.9 Acute upper respiratory infection, unspecified

== ENCOUNTER 2017-10-02 12:18 | Observation (INO) | payer OTHER ==
[2017-10-02 12:56] VITALS: RESP 18
[2017-10-02 13:00] VITALS: BMI 38.6
[2017-10-02] MEDS ORDERED: Sodium Chloride 0.9% 1,000 ML IV STA (13:17)
--- NOTE | 2017-10-02 13:44 | ED PDOC ---
Arrival/HPI - General Chief Complaint: Back Pain Time Seen by Provider: 10/02/17 13:16 Historian: Patient - History of Present Illness Narrative History of Present Illness (Text): 10/02/17 13:40 47 year old female, who presents to the emergency department complaining of chest pain associated with shortness of breath since 3 days ago. Patient reports also having back pain for 3 weeks and bilateral calf pain. She notes making multiple trips to [place] by car and that last trip was over a week ago. Patient denies any abdominal pain, fever, nausea, vomiting, diarrhea, dysuria, hematuria, or other complaints. Time/Duration: < week Symptom Onset: Gradual Symptom Course: Unchanged Past Medical History - Provider Review Nursing Documentation Reviewed: Yes - Infectious Disease Hx of Infectious Diseases: None - Tetanus Immunization Tetanus Immunization: Unknown - Past Medical History Past Medical History: No Previous - Cardiac Hx Cardiac Disorders: No - Pulmonary Hx Pneumonia: Yes - Neurological Hx Neurological Disorder: No - HEENT Hx HEENT Disorder: No - Renal Hx Renal Disorder: No - Endocrine/Metabolic Hx Endocrine Disorders: No - Hematological/Oncological Hx Blood Disorders: No - Integumentary Hx Dermatological Disorder: No - Musculoskeletal/Rheumatological Hx Falls: No - Gastrointestinal Hx Gastrointestinal Disorders: No - Genitourinary/Gynecological Hx Genitourinary Disorders: No - Psychiatric Hx Anxiety: No Hx Bipolar Disorder: No Hx Depression: No Hx Post Traumatic Stress Disorder: No Hx Schizophrenia: No Hx Substance Use: No - Past Surgical History Past Surgical History: No Previous - Surgical History Hx Tubal Ligation: Yes - Anesthesia Hx Anesthesia: Yes - Suicidal Assessment Feels Threatened In Home Enviroment: No Family/Social History - Physician Review Nursing Documentation Reviewed: Yes Family/Social History: Unknown Family HX Smoking Status: Never Smoked Hx Alcohol Use: No Hx Substance Use: No Hx Substance Use Treatment: No Allergies/Home Meds Allergies/Adverse Reactions: Allergies No Known Allergies Allergy (Verified 03/03/17 12:37) Review of Systems - Review of Systems Constitutional: absent: Fevers Respiratory: SOB. absent: Cough Cardiovascular: Chest Pain Gastrointestinal: absent: Abdominal Pain Genitourinary Female: absent: Dysuria, Frequency Musculoskeletal: Back Pain (lower back), Other (calf pain and plantar pain on bilateral feet) Skin: absent: Rash Neurological: absent: Headache, Dizziness Endocrine: absent: Diaphoresis Physical Exam Vital Signs Reviewed: Yes Vital Signs Temp Pulse Resp BP Pulse Ox 10/02/17 12:55 97.5 F L 80 18 135/92 H 96 Temperature: Afebrile Blood Pressure: Hypertensive Pulse: Regular Respiratory Rate: Normal Appearance: Positive for: Well-Appearing, Non-Toxic, Comfortable Pain Distress: None Mental Status: Positive for: Alert and Oriented X 3 - Systems Exam Head: Present: Atraumatic, Normocephalic Extroacular Muscles: Present: EOMI Conjunctiva: Present: Normal Mouth: Present: Moist Mucous Membranes Neck: Present: Normal Range of Motion Respiratory/Chest: Present: Clear to Auscultation, Good Air Exchange. No: Respiratory Distress, Accessory Muscle Use Cardiovascular: Present: Regular Rate and Rhythm, Normal S1, S2. No: Murmurs Abdomen: No: Tenderness, Distention, Rebound, Guarding Back: Present: Normal Inspection. No: CVA Tenderness, Midline Tenderness, Paraspinal Tenderness Upper Extremity: Present: Normal ROM Lower Extremity: Present: CALF TENDERNESS, Normal ROM. No: Edema Neurological: Present: GCS=15, Speech Normal Skin: Present: Warm, Dry, Normal Color. No: Rashes Psychiatric: Present: Alert, Oriented x 3 Medical Decision Making ED Course and Treatment: 10/02/17 47yr old morbidly obese female with chest pain/sob, back pain. hx of recent travel. slightly hypertensive. cbc; wnl cmp; wnl bnp; wnl trop; wnl cxr; wnl ekg; normal sinus rhythm at 82 bpm normal axis normal intervals no ST elevations CT angio dissection r/o dissection/PE: ADDENDUM: Negative examination for pulmonary embolism. [ Addendum Report Added by Austin Thomas MD at 10/02/2017 17:18:51 ] FINDINGS: CT ANGIOGRAPHY OF THE CHEST WITH & WITHOUT CONTRAST: AORTA (CHEST AND ABDOMEN): The thoracic and abdominal aorta are unremarkable, without aneurysm, dissection or rupture. No intramural thrombus identified in the thoracic aorta on the non-contrast ct of the chest. The celiac axis, superior mesenteric artery, inferior mesenteric artery and the renal arteries are widely patent. The pelvic arteries are unremarkable. LUNGS: Clear. No nodule, mass or consolidation. MEDIASTINUM: Unremarkable. Normal caliber aorta and pulmonary arterial trunk. No aortic dissection. Normal size heart. LYMPH NODES: Unremarkable. PLEURA: Unremarkable. No pneumothorax. No pleural fluid. BONES: Unremarkable. OTHER FINDINGS: None. CT ANGIOGRAPHY OF THE ABDOMEN AND PELVIS WITH CONTRAST: LIVER: Hepatomegaly, hepatic steatosis. GALLBLADDER AND BILE DUCTS: Unremarkable. PANCREAS: Unremarkable. No gross lesion or ductal dilatation. SPLEEN: Unremarkable. ADRENALS: Unremarkable. No mass. KIDNEYS AND URETERS: Unremarkable. No hydronephrosis. No solid mass. VASCULATURE: Unremarkable. No aortic aneurysm. STOMACH AND BOWEL: Unremarkable. No obstruction. No gross mural thickening. APPENDIX: Normal appendix. PERITONEUM: Unremarkable. No free fluid. No free air. LYMPH NODES: Unremarkable. No enlarged lymph nodes. BLADDER: Unremarkable. REPRODUCTIVE: Unremarkable. BONES: No acute fracture. OTHER FINDINGS: None. IMPRESSION: No significant or acute findings to account for/ related to the clinical presentation. Additional benign and/or incidental findings described above. Progress Notes: pt feeling better; resting comfortably; lungs cta bilaterally. 10/02/17 17:[address] ramos; accepts observational status. r/o ACS impression; chest pain, back pain admit observational status to tele. Reassessment Condition: Re-examined, Improved - Lab Interpretations Lab Results: 10/02/17 13:43 10/02/17 13:43 Lab Results 10/02/17 13:43: PT 11.9, INR 1.04, APTT 30.2 10/02/17 13:43: WBC 7.1, RBC 4.39, Hgb 12.1, Hct 37.5, MCV 85.4, MCH 27.6, MCHC 32.3, RDW 14.9 H, Plt Count 207, MPV 11.2 H, Gran % 65.8, Lymph % (Auto) 22.4, [place] % (Auto) 7.0 H, Eos % (Auto) 4.5, Baso % (Auto) 0.3, Gran # 4.67, Lymph # ( Auto) 1.6, [place] # (Auto) 0.5, Eos # (Auto) 0.3, Baso # (Auto) 0.02 10/02/17 13:43: Sodium 146, Potassium 3.8, Chloride 107, Carbon Dioxide 30, Anion Gap 14, BUN 13, Creatinine 0.6 L, Est GFR ( Amer) > 60, Est GFR ( Non-Af Amer) > 60, Random Glucose 116 H, Calcium 8.8, Total Bilirubin 0.2, AST 27, ALT 40, Alkaline Phosphatase 130 H, Lactate Dehydrogenase 490, Total Creatine Kinase 112, Troponin I < 0.01, NT-Pro-B Natriuret Pep 18.5, Total Protein 7.1, Albumin 3.8, Globulin 3.3, Albumin/Globulin Ratio 1.2, Lipase 47 10/02/17 13:43: Urine Color Yellow, Urine Appearance Clear, Urine pH 6.0, Ur Specific [place] 1.025, Urine Protein Trace H, Urine Glucose (UA) Negative, Urine Ketones Negative, Urine Blood Negative, Urine Nitrate Negative, Urine Bilirubin Negative, Urine Urobilinogen 0.2, Ur Leukocyte Esterase Negative, Urine RBC Negative, Urine WBC Negative, Ur Epithelial Cells 0 - 2 I have reviewed the lab results: Yes - RAD Interpretation Radiology Orders: 10/02/17 13:41 ANGIOGRAPHY DISECTION PROTOCOL [CT] Stat 10/02/17 15:47 CHEST PORTABLE [RAD] 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 - Medication Orders Current Medication Orders: Discontinued Medications Aspirin (Aspirin) 325 mg PO STAT STA Stop: 10/02/17 17:20 Sodium Chloride (Sodium Chloride 0.9%) 1,000 mls @ 999 mls/hr IV .Q1H1M STA Stop: 10/02/17 14:17 Last Admin: 10/02/17 14:09 Dose: 999 mls/hr eMAR Start Stop Document 10/02/17 14:09 [email or web address] (Rec: 10/02/17 14:09 [email or web address] [id number]) Intravenous Solution Start Date 10/02/17 Start Time 14:09 End Date 10/02/17 - Scribe Statement The provider has reviewed the documentation as recorded by the Emili George Provider Scribe Attestation: All medical record entries made by the Scribneelam were at my direction and personally dictated by me. I have reviewed the chart and agree that the record accurately reflects my personal performance of the history, physical exam, medical decision making, and the department course for this patient. I have also personally directed, reviewed, and agree with the discharge instructions and disposition. Disposition/Present on Arrival - Present on Arrival Any Indicators Present on Arrival: No History of DVT/PE: No History of Uncontrolled Diabetes: No Urinary Catheter: No History of Decub. Ulcer: No History Surgical Site Infection Following: None - Disposition Have Diagnosis and Disposition been Completed?: Yes Diagnosis: Chest pain Disposition: HOSPITALIZED Disposition Time: 17:53 Patient Plan: Observation Condition: FAIR Discharge Instructions (ExitCare): Chest Pain (ED) Referrals: PCP,NO [Primary Care Provider] - Follow up with primary Forms: [employer] (N[place]ian)
[2017-10-02 13:55] LABS: BASO # 0.02 K/mm3 (0.0-2.0); BASO % 0.3 % (0.0-3.0); EOS # 0.3 (0.0-0.7); EOS % 4.5 % (1.5-5.0); GRAN # 4.67 (1.4-6.5); GRAN % 65.8 % (50.0-68.0); HEMOGLOBIN 12.1 g/dL (12.0-16.0); LYMPH # 1.6 (1.2-3.4); LYMPH % 22.4 % (22.0-35.0); MEAN CELL VOLUME 85.4 fl (80.0-105.0); MEAN CORPUSCULAR HEMOGLOBIN 27.6 pg (25.0-35.0); MEAN CORPUSCULAR HGB CONC 32.3 g/dl (31.0-37.0); MEAN PLATELET VOLUME 11.2 fl (7.0-11.0); MONO # 0.5 (0.1-0.6); RBC 4.39 10^6/uL (3.5-6.1); RED CELL DISTRIBUTION WIDTH 14.9 % (11.5-14.5); WHITE BLOOD COUNT 7.1 10^3/ul (4.5-11.0)
[2017-10-02 13:58] LABS: URINE BILIRUBIN NEGATIVE (NEGATIVE); URINE BLOOD NEGATIVE (NEGATIVE); URINE GLUCOSE (UA) NEGATIVE (NEGATIVE); URINE LEUKOCYTE ESTERASE NEGATIVE Leu/uL (NEGATIVE); URINE PROTEIN TRACE mg/dL (<30 mg/dL); URINE UROBILINOGEN 0.2 E.U./dL (<1 E.U./dL)
[2017-10-02 13:59] LABS: URINE APPEARANCE CLEAR (CLEAR); URINE COLOR YELLOW (YELLOW)
[2017-10-02 14:05] LABS: INR 1.04 (0.93-1.08); PARTIAL THROMBOPLASTIN TIME 30.2 Seconds (25.1-36.5); PROTHROMBIN TIME 11.9 SECONDS (9.4-12.5)
[2017-10-02 14:12] LABS: ALB/GLOB RATIO 1.2 (1.1-1.8); ALBUMIN 3.8 g/dL (3.0-4.8); ALT/SGPT 40 U/L (7-56); AST/SGOT 27 U/L (14-36); BLOOD UREA NITROGEN 13 mg/dL (7-21); CALCIUM 8.8 mg/dL (8.4-10.5); GFR AFRICAN-AMERICAN > 60; GFR NON-AFRICAN AMERICAN > 60; LIPASE 47 U/L (23-300)
[2017-10-02 14:24] LABS: B-TYPE NATRIURETIC PEPTIDE 18.5 pg/mL (0-450); TROPONIN I < 0.01 ng/mL; URINE EPITHELIAL CELLS 0 - 2 /hpf (0-5); URINE RBC NEGATIVE /hpf (0-2); URINE WBC NEGATIVE /hpf (0-6)
--- NOTE | 2017-10-02 16:55 | CT ---
PROCEDURE: CT Angiography Chest, Abdomen and Pelvis with and without intravenous contrast HISTORY: Chest pain, back pain. Pulmonary embolism and aortic dissection suspected. COMPARISON: None. TECHNIQUE: Contiguous axial images of the chest, abdomen and pelvis were obtained in the phase of aortic enhancement. A noncontrast enhanced CT of the chest was also obtained to evaluate for possible intramural thrombus. Coronal and sagittal reformats were generated. IV dose administered: 150 cc Omnipaque 350 Mean Hounsfield unit values in the main pulmonary artery: 275.63 Radiation dose: Total exam DLP = 868.20 mGy-cm. This CT exam was performed using one or more of the following dose reduction techniques: Automated exposure control, adjustment of the mA and/or kV according to patient size, and/or use of iterative reconstruction technique. FINDINGS: CT ANGIOGRAPHY OF THE CHEST WITH & WITHOUT CONTRAST: AORTA (CHEST AND ABDOMEN): The thoracic and abdominal aorta are unremarkable, without aneurysm, dissection or rupture. No intramural thrombus identified in the thoracic aorta on the non-contrast ct of the chest. The celiac axis, superior mesenteric artery, inferior mesenteric artery and the renal arteries are widely patent. The pelvic arteries are unremarkable. LUNGS: Clear. No nodule, mass or consolidation. MEDIASTINUM: Unremarkable. Normal caliber aorta and pulmonary arterial trunk. No aortic dissection. Normal size heart. LYMPH NODES: Unremarkable. PLEURA: Unremarkable. No pneumothorax. No pleural fluid. BONES: Unremarkable. OTHER FINDINGS: None. CT ANGIOGRAPHY OF THE ABDOMEN AND PELVIS WITH CONTRAST: LIVER: Hepatomegaly, hepatic steatosis. GALLBLADDER AND BILE DUCTS: Unremarkable. PANCREAS: Unremarkable. No gross lesion or ductal dilatation. SPLEEN: Unremarkable. ADRENALS: Unremarkable. No mass. KIDNEYS AND URETERS: Unremarkable. No hydronephrosis. No solid mass. VASCULATURE: Unremarkable. No aortic aneurysm. STOMACH AND BOWEL: Unremarkable. No obstruction. No gross mural thickening. APPENDIX: Normal appendix. PERITONEUM: Unremarkable. No free fluid. No free air. LYMPH NODES: Unremarkable. No enlarged lymph nodes. BLADDER: Unremarkable. REPRODUCTIVE: Unremarkable. BONES: No acute fracture. OTHER FINDINGS: None. IMPRESSION: No significant or acute findings to account for/ related to the clinical presentation. Additional benign and/or incidental findings described above.
--- NOTE | 2017-10-02 17:09 | RAD ---
HISTORY: Chest pain. COMPARISON: 06/26/2017. FINDINGS: LUNGS: No active pulmonary disease. PLEURA: No significant pleural effusion identified, no pneumothorax apparent. CARDIOVASCULAR: No radiographic findings to suggest acute or significant cardiovascular disease. OSSEOUS STRUCTURES: No significant abnormalities. VISUALIZED UPPER ABDOMEN: Normal. OTHER FINDINGS: None. IMPRESSION: No active disease. No significant interval change compared to the prior examination(s).
--- NOTE | 2017-10-02 20:06 | CP.PCM.HP ---
History of Present Illness - History of Present Illness History of Present Illness: Luli Romano, PGY1, H&P for Dr Martin Phillips: CC: right sided chest pain 47 year old female with no significant PMH presents for right sided chest pain for past 2 days. Patient describes it as piercing in nature, 10/10 at its worst , intermittent, nonradiating, denies associated nausea, vomiting, palpitations, diaphoresis, sob, pleuritic cp, epigastric pain. States that she sometimes feels chills, but denies fevers, sore throat, headache, neck pain, abdominal pain, leg swelling, urinary symptoms. It started when she was playing with her sister and the started having right sided thoracic pain. Pt reports a normal stress test last year with Dr Alonso. 12 point ROS obtained and neg, except as per HPI. PMH: denies PSH: Tubule ligation few years ago ALL: NKA FH: denies SH: denies any drinking, smoking or drug usage Present on Admission - Present on Admission Any Indicators Present on Admission: No History of DVT/PE: No History of Uncontrolled Diabetes: No Urinary Catheter: No Decubitus Ulcer Present: No Review of Systems - Review of Systems All systems: reviewed and no additional remarkable complaints except Review of Systems: as per HPI Past Patient History - Infectious Disease Hx of Infectious Diseases: None - Tetanus Immunizations Tetanus Immunization: Unknown - Past Social History Smoking Status: Never Smoked - CARDIAC Hx Cardiac Disorders: No - PULMONARY Hx Pneumonia: Yes - NEUROLOGICAL Hx Neurological Disorder: No - HEENT Hx HEENT Problems: No - RENAL Hx Chronic Kidney Disease: No - ENDOCRINE/METABOLIC Hx Endocrine Disorders: No - HEMATOLOGICAL/ONCOLOGICAL Hx Blood Disorders: No - INTEGUMENTARY Hx Dermatological Problems: No - MUSCULOSKELETAL/RHEUMATOLOGICAL Hx Falls: No - GASTROINTESTINAL Hx Gastrointestinal Disorders: No - GENITOURINARY/GYNECOLOGICAL Hx Genitourinary Disorders: No - PSYCHIATRIC Hx Anxiety: No Hx Bipolar Disorder: No Hx Depression: No Hx Post Traumatic Stress Disorder: No Hx Schizophrenia: No Hx Substance Use: No - SURGICAL HISTORY Hx Tubal Ligation: Yes - ANESTHESIA Hx Anesthesia: Yes Meds Allergies/Adverse Reactions: Allergies Allergy/AdvReac Type Severity Reaction Status Date / Time No Known Allergies Allergy Verified 03/03/17 12:37 Physical Exam - Constitutional Appears: Non-toxic, No Acute Distress - Head Exam Head Exam: ATRAUMATIC, NORMOCEPHALIC - Eye Exam Eye Exam: EOMI, PERRL. absent: Conjunctival injection, Nystagmus, Scleral icterus Pupil Exam: NORMAL ACCOMODATION, PERRL. absent: Fixed, Irregular, Unequal - ENT Exam ENT Exam: Mucous Membranes Moist - Neck Exam Neck exam: Positive for: Full Rom - Respiratory Exam Respiratory Exam: Chest Wall Tenderness, Clear to Auscultation Bilateral, NORMAL BREATHING PATTERN. absent: Accessory Muscle Use, Rhonchi, Wheezes, Respiratory Distress - Cardiovascular Exam Cardiovascular Exam: RRR, +S1, +S2. absent: Tachycardia, Systolic Murmur - GI/Abdominal Exam GI & Abdominal Exam: Normal Bowel Sounds, Soft. absent: Distended, Firm, Organomegaly, Rebound, Rigid, Tenderness - Extremities Exam Extremities exam: Positive for: normal inspection. Negative for: calf tenderness, pedal edema - Back Exam Back exam: NORMAL INSPECTION - Neurological Exam Neurological exam: Alert, Oriented x3 - Psychiatric Exam Psychiatric exam: Normal Affect, Normal Mood - Skin Skin Exam: Dry, Normal Color, Warm Results - Vital Signs Recent Vital Signs: Last Vital Signs Temp 97.5 F L 10/02/17 12:55 Pulse 71 10/02/17 18:58 Resp 18 10/02/17 18:58 BP 127/75 10/02/17 18:58 Pulse Ox 97 10/02/17 18:58 - Labs Result Diagrams: 10/02/17 13:43 10/02/17 13:43 Assessment & Plan - Assessment and Plan (Free Text) Assessment: 47 year old female presents for chest pain: Chest pain likely musculoskeletal, r/o ACS, vs cervical/thoracic radiculopathy - Troponin x 1 and EKG showed NSR HR 82. No ST/T wave abnormalities. - Aspirin 325 mg given in ED - f/u Serial troponins and EKG in AM - Cardiology consult. F/u recs. - TSH, lipid panel, A1C - ARIE score 0 - Wells score for DVT 1-2. F/u LE US venous. CTA neg for PE. - cont to monitor for any changes - Naproxen BID - ASA, lipitor - CTA neg for PE - Tele monitoring Gi/DVT ppx: pepcid, scds Case & plan seen reviewed and discussed in detail with attending physician, Dr Daisha Phillips. - Date & Time Date: 10/02/17 Time: 20:07
[2017-10-02] MEDS: Naproxen 550 mg Tab PO SCH (20:32)
[2017-10-02] MEDS ORDERED: Pneumococcal 23-Valent Vaccine IM ONE (22:35)
[2017-10-03 01:30] VITALS: O2SAT 96
[2017-10-03 07:30] LABS: BASO # 0.02 K/mm3 (0.0-2.0); BASO % 0.3 % (0.0-3.0); EOS # 0.3 (0.0-0.7); EOS % 5.1 % (1.5-5.0); GRAN # 4.07 (1.4-6.5); GRAN % 63.5 % (50.0-68.0); HEMOGLOBIN 11.8 g/dL (12.0-16.0); LYMPH # 1.6 (1.2-3.4); MEAN CELL VOLUME 86.6 fl (80.0-105.0); MEAN CORPUSCULAR HEMOGLOBIN 26.8 pg (25.0-35.0); MEAN CORPUSCULAR HGB CONC 30.9 g/dl (31.0-37.0); MEAN PLATELET VOLUME 10.9 fl (7.0-11.0); MONO # 0.4 (0.1-0.6); MONO % 6.1 % (1.0-6.0); RBC 4.41 10^6/uL (3.5-6.1); RED CELL DISTRIBUTION WIDTH 15.2 % (11.5-14.5); WHITE BLOOD COUNT 6.4 10^3/ul (4.5-11.0)
[2017-10-03 07:31] LABS: HDL CHOLESTEROL 45 mg/dL (29-60)
[2017-10-03 07:42] LABS: LDL CHOLESTEROL 76 mg/dL (0-129)
[2017-10-03 07:56] LABS: ALB/GLOB RATIO 1.1 (1.1-1.8); ALBUMIN 3.8 g/dL (3.0-4.8); ALT/SGPT 40 U/L (7-56); AST/SGOT 28 U/L (14-36); BLOOD UREA NITROGEN 13 mg/dL (7-21); CALCIUM 8.5 mg/dL (8.4-10.5); GFR AFRICAN-AMERICAN > 60; GFR NON-AFRICAN AMERICAN > 60
[2017-10-03 08:07] LABS: TROPONIN I < 0.01 ng/mL
[2017-10-03] MEDS ORDERED: guaiFENesin 200 mg/10 ml Syrup UD PO PRN (09:11)
--- NOTE | 2017-10-03 10:06 | CARD ---
APPROVED REPORT EKG Measurement Heart [id number] <Conclusion> Normal sinus rhythm Normal ECG No change
[2017-10-03] MEDS: Naproxen 550 mg Tab PO SCH (10:15)
[2017-10-03 12:27] VITALS: BP 121/79; PULSE 72; TEMP 98.1
--- NOTE | 2017-10-03 12:33 | US ---
HISTORY: Leg pain and swelling. Evaluate for DVT PHYSICIAN(S): Wing Ortiz MD. TECHNIQUE: Duplex sonography and color-flow Doppler with graded compression were used to evaluate the deep venous systems of both lower extremities. FINDINGS: The visualized deep venous systems of both lower extremities are sonographically normal and compressible. Normal wave forms and augmentation are seen. There is no sonographic evidence for deep venous thrombosis in the visualized segments of both lower extremities. IMPRESSION: No sonographic evidence for deep venous thrombosis in the visualized segments of both lower extremities.
[2017-10-03 13:12] LABS: TROPONIN I < 0.01 ng/mL
--- NOTE | 2017-10-03 14:27 | CP.PCM.DIS ---
<Luli Romano - Last Filed: 10/03/17 14:21> Provider - Provider Date of Admission: 10/02/17 17:47 Attending physician: Philly Berrios MD Primary care physician: NO PRIMARY CARE PROVIDER Consults: Cardio alberta/Harshil Time Spent in preparation of Discharge (in minutes): 45 Diagnosis - Discharge Diagnosis (1) Atypical chest pain Status: Acute Hospital Course - Lab Results Lab Results: Most Recent Lab Values WBC 6.4 10^3/ul (4.5-11.0) 10/03/17 06:30 RBC 4.41 10^6/uL (3.5-6.1) 10/03/17 06:30 Hgb 11.8 g/dL (12.0-16.0) L 10/03/17 06:30 Hct 38.2 % (36.0-48.0) 10/03/17 06:30 MCV 86.6 fl (80.0-105.0) 10/03/17 06:30 MCH 26.8 pg (25.0-35.0) 10/03/17 06:30 MCHC 30.9 g/dl (31.0-37.0) L 10/03/17 06:30 RDW 15.2 % (11.5-14.5) H 10/03/17 06:30 Plt Count 189 10^3/uL (120.0-450.0) 10/03/17 06:30 MPV 10.9 fl (7.0-11.0) 10/03/17 06:30 Gran % 63.5 % (50.0-68.0) 10/03/17 06:30 Lymph % (Auto) 25.0 % (22.0-35.0) 10/03/17 06:30 [place] % (Auto) 6.1 % (1.0-6.0) H 10/03/17 06:30 Eos % (Auto) 5.1 % (1.5-5.0) H 10/03/17 06:30 Baso % (Auto) 0.3 % (0.0-3.0) 10/03/17 06:30 Gran # 4.07 (1.4-6.5) 10/03/17 06:30 Lymph # (Auto) 1.6 (1.2-3.4) 10/03/17 06:30 [place] # (Auto) 0.4 (0.1-0.6) 10/03/17 06:30 Eos # (Auto) 0.3 (0.0-0.7) 10/03/17 06:30 Baso # (Auto) 0.02 K/mm3 (0.0-2.0) 10/03/17 06:30 PT 11.9 SECONDS (9.4-12.5) 10/02/17 13:43 INR 1.04 (0.93-1.08) 10/02/17 13:43 APTT 30.2 Seconds (25.1-36.5) 10/02/17 13:43 Sodium 145 mmol/L (132-148) 10/03/17 06:30 Potassium 4.0 mmol/L (3.6-5.0) 10/03/17 06:30 Chloride 108 mmol/L (98-107) H 10/03/17 06:30 Carbon Dioxide 26 mmol/L (21-33) 10/03/17 06:30 Anion Gap 15 (10-20) 10/03/17 06:30 BUN 13 mg/dL (7-21) 10/03/17 06:30 Creatinine 0.6 mg/dl (0.7-1.2) L 10/03/17 06:30 Est GFR ( Amer) > 60 10/03/17 06:30 Est GFR (Non-Af Amer) > 60 10/03/17 06:30 Random Glucose 100 mg/dL (70-110) 10/03/17 06:30 Hemoglobin A1c 6.1 % (4.2-6.5) 10/02/17 13:43 Calcium 8.5 mg/dL (8.4-10.5) 10/03/17 06:30 Total Bilirubin 0.2 mg/dL (0.2-1.3) 10/03/17 06:30 AST 28 U/L (14-36) 10/03/17 06:30 ALT 40 U/L (7-56) 10/03/17 06:30 Alkaline Phosphatase 152 U/L (38-126) H 10/03/17 06:30 Lactate Dehydrogenase 452 U/L (333-699) 10/03/17 12:35 Total Creatine Kinase 94 U/L (35-230) 10/03/17 12:35 Troponin I < 0.01 ng/mL 10/03/17 12:35 NT-Pro-B Natriuret Pep 18.5 pg/mL (0-450) 10/02/17 13:43 Total Protein 7.0 g/dL (5.8-8.3) 10/03/17 06:30 Albumin 3.8 g/dL (3.0-4.8) 10/03/17 06:30 Globulin 3.3 gm/dL 10/03/17 06:30 Albumin/Globulin Ratio 1.1 (1.1-1.8) 10/03/17 06:30 Triglycerides 167 mg/dL (35-160) H 10/03/17 06:45 Cholesterol 147 mg/dL (130-200) 10/03/17 06:45 LDL Cholesterol Direct 76 mg/dL (0-129) 10/03/17 06:45 HDL Cholesterol 45 mg/dL (29-60) 10/03/17 06:45 Lipase 47 U/L (23-300) 10/02/17 13:43 TSH 3rd Generation 1.80 mIU/mL (0.46-4.68) 10/02/17 13:00 Urine Color Yellow (YELLOW) 10/02/17 13:43 Urine Appearance Clear (CLEAR) 10/02/17 13:43 Urine pH 6.0 (4.7-8.0) 10/02/17 13:43 Ur Specific [place] 1.025 (1.005-1.035) 10/02/17 13:43 Urine Protein Trace mg/dL (<30 mg/dL) H 10/02/17 13:43 Urine Glucose (UA) Negative mg/dL (NEGATIVE) 10/02/17 13:43 Urine Ketones Negative mg/dL (NEGATIVE) 10/02/17 13:43 Urine Blood Negative (NEGATIVE) 10/02/17 13:43 Urine Nitrate Negative (NEGATIVE) 10/02/17 13:43 Urine Bilirubin Negative (NEGATIVE) 10/02/17 13:43 Urine Urobilinogen 0.2 E.U./dL (<1 E.U./dL) 10/02/17 13:43 Ur Leukocyte Esterase Negative Sana/uL (NEGATIVE) 10/02/17 13:43 Urine RBC Negative /hpf (0-2) 10/02/17 13:43 Urine WBC Negative /hpf (0-6) 10/02/17 13:43 Ur Epithelial Cells 0 - 2 /hpf (0-5) 10/02/17 13:43 - Hospital Course Hospital Course: 47 year old female with no significant PMH presents for right sided chest pain for past 2-3 days. Patient describes it as piercing in nature, 10/10 at its worst, intermittent, nonradiating, denies associated nausea, vomiting, palpitations, diaphoresis, sob, pleuritic cp, epigastric pain. Started after she was struck be her sister while playing with her. Pt also endorsed recent travel history. On physical exam, cp is reproducible on palpation. Vitals stable, EKG showed NSR with no ST/T wave abnormalities. Troponins negative x3. Echocardiogram prelim read showed EF 64.7%. US LE showed no DVT, CTA chest negative for PE. Dr Chua cardiology consulted and cleared patient for discharge. Pt given ASA 81 mg, lipitor, naproxen to go home on. Pt to follow up with PMD in 1 week. Case seen and discussed with Dr Berrios. Luli Romano, PGY1 Discharge Exam - Head Exam Head Exam: ATRAUMATIC, NORMOCEPHALIC - Eye Exam Eye Exam: EOMI, PERRL. absent: Conjunctival injection, Nystagmus, Scleral icterus Pupil Exam: NORMAL ACCOMODATION, PERRL. absent: Fixed, Irregular, Miosis, Unequal - ENT Exam ENT Exam: Mucous Membranes Moist - Neck Exam Neck exam: Full Rom - Respiratory Exam Respiratory Exam: Chest Wall Tenderness, Clear to PA & Lateral, NORMAL BREATHING PATTERN. absent: Decreased Breath Sounds, Rhonchi, Wheezes, Respiratory Distress, Stridor - Cardiovascular Exam Cardiovascular Exam: RRR, +S1, +S2. absent: Systolic Murmur - GI/Abdominal Exam GI & Abdominal Exam: Normal Bowel Sounds, Soft. absent: Distended, Firm, Guarding, Mass, Organomegaly, Pulsatile Mass, Rebound, Rigid, Tenderness - Extremities Exam Extremities exam: normal inspection - Back Exam Back exam: NORMAL INSPECTION - Neurological Exam Neurological exam: Alert, Oriented x3 - Psychiatric Exam Psychiatric exam: Normal Affect, Normal Mood - Skin Skin Exam: Dry, Normal Color, Warm Discharge Plan - Discharge Medications Prescriptions: Aspirin [Aspirin Chewable] 81 mg PO DAILY #30 chew Naproxen [Anaprox DS] 550 mg PO BID 10 Days tab - Follow Up Plan Condition: FAIR Disposition: HOME/ ROUTINE Instructions: Chest Pain That Is Not Caused by the Heart (DC), Chest Pain (DC) , Chest Pain (GEN) Additional Instructions: - Resume your home meds, take Aspirin daily - follow up with primary care doctor in 1 week - Return to ER for any concerns. Referrals: PCP,NO [Primary Care Provider] - <Philly Berrios - Last Filed: 10/03/17 14:39> Provider - Provider Date of Admission: 10/02/17 17:47 Attending physician: Philly Berrios MD Primary care physician: GUY PRIMARY CARE PROVIDER Hospital Course - Lab Results Lab Results: Most Recent Lab Values WBC 6.4 10^3/ul (4.5-11.0) 10/03/17 06:30 RBC 4.41 10^6/uL (3.5-6.1) 10/03/17 06:30 Hgb 11.8 g/dL (12.0-16.0) L 10/03/17 06:30 Hct 38.2 % (36.0-48.0) 10/03/17 06:30 MCV 86.6 fl (80.0-105.0) 10/03/17 06:30 MCH 26.8 pg (25.0-35.0) 10/03/17 06:30 MCHC 30.9 g/dl (31.0-37.0) L 10/03/17 06:30 RDW 15.2 % (11.5-14.5) H 10/03/17 06:30 Plt Count 189 10^3/uL (120.0-450.0) 10/03/17 06:30 MPV 10.9 fl (7.0-11.0) 10/03/17 06:30 Gran % 63.5 % (50.0-68.0) 10/03/17 06:30 Lymph % (Auto) 25.0 % (22.0-35.0) 10/03/17 06:30 [place] % (Auto) 6.1 % (1.0-6.0) H 10/03/17 06:30 Eos % (Auto) 5.1 % (1.5-5.0) H 10/03/17 06:30 Baso % (Auto) 0.3 % (0.0-3.0) 10/03/17 06:30 Gran # 4.07 (1.4-6.5) 10/03/17 06:30 Lymph # (Auto) 1.6 (1.2-3.4) 10/03/17 06:30 [place] # (Auto) 0.4 (0.1-0.6) 10/03/17 06:30 Eos # (Auto) 0.3 (0.0-0.7) 10/03/17 06:30 Baso # (Auto) 0.02 K/mm3 (0.0-2.0) 10/03/17 06:30 PT 11.9 SECONDS (9.4-12.5) 10/02/17 13:43 INR 1.04 (0.93-1.08) 10/02/17 13:43 APTT 30.2 Seconds (25.1-36.5) 10/02/17 13:43 Sodium 145 mmol/L (132-148) 10/03/17 06:30 Potassium 4.0 mmol/L (3.6-5.0) 10/03/17 06:30 Chloride 108 mmol/L (98-107) H 10/03/17 06:30 Carbon Dioxide 26 mmol/L (21-33) 10/03/17 06:30 Anion Gap 15 (10-20) 10/03/17 06:30 BUN 13 mg/dL (7-21) 10/03/17 06:30 Creatinine 0.6 mg/dl (0.7-1.2) L 10/03/17 06:30 Est GFR ( Amer) > 60 10/03/17 06:30 Est GFR (Non-Af Amer) > 60 10/03/17 06:30 Random Glucose 100 mg/dL (70-110) 10/03/17 06:30 Hemoglobin A1c 6.1 % (4.2-6.5) 10/02/17 13:43 Calcium 8.5 mg/dL (8.4-10.5) 10/03/17 06:30 Total Bilirubin 0.2 mg/dL (0.2-1.3) 10/03/17 06:30 AST 28 U/L (14-36) 10/03/17 06:30 ALT 40 U/L (7-56) 10/03/17 06:30 Alkaline Phosphatase 152 U/L (38-126) H 10/03/17 06:30 Lactate Dehydrogenase 452 U/L (333-699) 10/03/17 12:35 Total Creatine Kinase 94 U/L (35-230) 10/03/17 12:35 Troponin I < 0.01 ng/mL 10/03/17 12:35 NT-Pro-B Natriuret Pep 18.5 pg/mL (0-450) 10/02/17 13:43 Total Protein 7.0 g/dL (5.8-8.3) 10/03/17 06:30 Albumin 3.8 g/dL (3.0-4.8) 10/03/17 06:30 Globulin 3.3 gm/dL 10/03/17 06:30 Albumin/Globulin Ratio 1.1 (1.1-1.8) 10/03/17 06:30 Triglycerides 167 mg/dL (35-160) H 10/03/17 06:45 Cholesterol 147 mg/dL (130-200) 10/03/17 06:45 LDL Cholesterol Direct 76 mg/dL (0-129) 10/03/17 06:45 HDL Cholesterol 45 mg/dL (29-60) 10/03/17 06:45 Lipase 47 U/L (23-300) 10/02/17 13:43 TSH 3rd Generation 1.80 mIU/mL (0.46-4.68) 10/02/17 13:00 Urine Color Yellow (YELLOW) 10/02/17 13:43 Urine Appearance Clear (CLEAR) 10/02/17 13:43 Urine pH 6.0 (4.7-8.0) 10/02/17 13:43 Ur Specific [place] 1.025 (1.005-1.035) 10/02/17 13:43 Urine Protein Trace mg/dL (<30 mg/dL) H 10/02/17 13:43 Urine Glucose (UA) Negative mg/dL (NEGATIVE) 10/02/17 13:43 Urine Ketones Negative mg/dL (NEGATIVE) 10/02/17 13:43 Urine Blood Negative (NEGATIVE) 10/02/17 13:43 Urine Nitrate Negative (NEGATIVE) 10/02/17 13:43 Urine Bilirubin Negative (NEGATIVE) 10/02/17 13:43 Urine Urobilinogen 0.2 E.U./dL (<1 E.U./dL) 10/02/17 13:43 Ur Leukocyte Esterase Negative Sana/uL (NEGATIVE) 10/02/17 13:43 Urine RBC Negative /hpf (0-2) 10/02/17 13:43 Urine WBC Negative /hpf (0-6) 10/02/17 13:43 Ur Epithelial Cells 0 - 2 /hpf (0-5) 10/02/17 13:43 Attending/Attestation - Attestation I have personally seen and examined this patient.: Yes I have fully participated in the care of the patient.: Yes I have reviewed all pertinent clinical information, including history, physical exam and plan: Yes Notes (Text): 10/03/17 14:35 47 year old female with no significant past medical history who presented with complaint of right sided, reproducible chest pain. Serial cardiac enzymes were negative and ACS was ruled out. She was started on naproxen with improvement of symptoms. She was seen by cardiology and had an echocardiogram today. Overall her symptoms have improved. She is discharged home to follow up with her pmd or [facility]. Philly Berrios MD Hospitalist.
--- NOTE | 2017-10-04 00:18 | CON ---
DATE: REASON FOR CONSULTATION: Followup cardiac evaluation, admitted with right-sided chest pain and shortness of breath. BRIEF CLINICAL HISTORY: This is a 47-year-old female with morbid obesity with a past medical history of COPD, on nebulizer treatment, Proventil, came in to the ER with right-sided chest pain, sharp in nature, like something piercing the chest, off and on, and nagging her. Denies any dyspnea on exertion, chest pain on exertion prior to that episode. Chest pain increasing when taking a deep breath and coughing, and also turning and twisting. PAST MEDICAL HISTORY: History of COPD. CURRENT MEDICATIONS: The patient is taking at home Proventil treatment and ibuprofen. ALLERGIES: NO KNOWN DRUG ALLERGY. FAMILY HISTORY: No history of coronary artery disease. SOCIAL HISTORY: Denies any smoking. Denies any history of alcohol abuse. REVIEW OF SYSTEMS: As per HPI. PHYSICAL EXAMINATION VITAL SIGNS: As follows: Temperature afebrile, heart rate 72, blood pressure 120/79. HEENT: PERRLA. Extraocular muscles are intact. NECK: Supple. No carotid bruit or thyromegaly. CHEST: Clear to auscultation. HEART: S1 and S2 regular. ABDOMEN: Soft. EXTREMITIES: Clubbing and cyanosis negative. LABORATORY DATA: Blood workup as follows: WBC 6.4, hemoglobin 11.8, hematocrit 38.2, platelet count 189. Chemistry showed sodium 145, potassium 4, chloride 108, carbon dioxide 26, anion gap of 15, BUN 13, creatinine 0.6. Troponin 0.01 x2 negative. Total cholesterol 147, LDL 76, HDL 75, TSH 1.8. EKG showed normal sinus. No acute ST-T changes noted. The patient had CT angio, no evidence of pulmonary embolism. The patient had also extremity ultrasound done that was negative. IMPRESSION: Atypical chest pain, but given the risk factor of coronary artery disease including morbid obesity, body mass index of 42 kg/m2, suggest stress test as outpatient and echo. Echo is being done as we talk, patient is in Echocardiography Department. RECOMMENDATION: Followup serial CPK. If CPK and troponin remains negative, telemetry can be discontinued and the patient can be discharged home. Followup for stress test as outpatient. We will schedule. Continue nonsteroidal antiinflammatory. We will follow with you. Thank you, Dr. Phillips, for providing us the opportunity in taking care of [place] Justin Verdin. Yadira Chua MD
--- NOTE | 2017-10-04 12:13 | CARD ---
APPROVED REPORT EXAM: Two-dimensional and M-mode echocardiogram with Doppler and color Doppler. INDICATION Chest Pain 2D DIMENSIONS Left Atrium (2D)4.4 (1.6-4.0cm)IVSd1.1 (0.7-1.1cm) LVDd4.7 (3.9-5.9cm)PWd0.9 (0.7-1.1cm) LVDs3.0 (2.5-4.0cm)FS (%) 35.4 % LVEF (%)64.7 (>50%) M-Mode DIMENSIONS Aortic Root3.60 (2.2-3.7cm)Aortic Cusp Exc.1.80 (1.5-2.0cm) Aortic Valve AoV Peak Vkufutwq883.0cm/Daniel Peak GR.14mmHg Mitral Valve MV E Itxjoguj682.0cm/sMV A Plyfrbjz53.7cm/sE/A ratio1.2 TDI Lateral E' Peak V15.90cm/sMedial E' Peak V10.80cm/sE/Lateral E'7.5 E/Medial E'11.0 Pulmonary Valve PV Peak Wgyktahj00.8cm/sPV Peak Grad.3mmHg Tricuspid Valve TR Peak Qhrqoqeb443um/sRAP [id number] Peak Gr.22mmHg [id number] LEFT VENTRICLE The left ventricle is normal size. There is normal left ventricular wall thickness. The left ventricular function is normal. The left ventricular ejection fraction is within the normal range. There is normal LV segmental wall motion. RIGHT VENTRICLE The right ventricular systolic function is normal. ATRIA The left atrium is mildly dilated. The right atrium size is normal. The interatrial septum is intact with no evidence for an atrial septal defect. AORTIC VALVE The aortic valve is normal in structure. No aortic regurgitation is present. There is no aortic valvular stenosis. MITRAL VALVE The mitral valve is normal in structure. There is no mitral valve regurgitation noted. TRICUSPID VALVE The tricuspid valve is normal in structure. There is no tricuspid valve regurgitation noted. PULMONIC VALVE The pulmonary valve is normal in structure. GREAT VESSELS The aortic root is normal in size. The IVC is normal in size and collapses >50% with inspiration. PERICARDIAL EFFUSION There is no pleural effusion. There is no pericardial effusion. <Conclusion> Mildly dilated LA. Otherwise normal study.
--- NOTE | 2017-10-04 13:02 | CARD ---
APPROVED REPORT EKG Measurement Heart [id number] <Conclusion> Normal sinus rhythm Normal ECG
== END 2017-10-03 16:30 | disposition home or self-care (01) ==
LOC: ED 12:18 → ERH 17:47 → 2RNO 22:00
PROVIDERS: ADMIT Hospitalist; ATTEND Internal Medicine
DX: R07.89 Other chest pain (principal); E66.01 Morbid (severe) obesity due to excess calories; Z68.41 Body mass index [BMI] 40.0-44.9, adult; J44.9 Chronic obstructive pulmonary disease, unspecified; Z79.82 Long term (current) use of aspirin; Z87.01 Personal history of pneumonia (recurrent); Z98.51 Tubal ligation status
CPT/HCPCS: 36415; 71045; 71275; 74175; 80053; 80061; 81001; 82550; 83036; 83615; 83690; 83880; 84443; 84484; 85025; 85610; 85730; 93005; 93306; 93970; 99285; G0378; J7040; Q9967